=== PATIENT | male | born 1975 | race Two or more races ===

== ENCOUNTER 2019-01-11 10:31 | Day surgery (SDC) | payer BC ==
[~2019-01-11] VITALS: Ht 185.4 cm; Wt 76.9 kg
[~2019-01-11 10:31] MED LIST: ESOMEPRAZOLE; LANSOPRAZOLE; RANITIDINE
[2019-01-11 11:10] VITALS: Ht 185.4 cm; Wt 76.9 kg
[2019-01-11 11:20] VITALS: BP 124/82; PULSE 74; RESP 14
[2019-01-11] MEDS ORDERED: PROPOFOL 20 ML ONE (11:24)
[2019-01-11 11:30] VITALS: BP 124/82; PULSE 74; RESP 14
[2019-01-11] MEDS ORDERED: FENTAnyl 50 MCG/ML VIAL ONE (11:49)
[2019-01-11] MEDS ORDERED: MIDAZOLAM 1 MG/ML 2 ML INJ ONE (11:49)
== END 2019-01-11 13:36 | disposition home or self-care (01) ==
LOC: GIL 10:31
PROVIDERS: ATTEND Internal Medicine Gastroenterology
DX: K20.8 Other esophagitis (principal)
CPT/HCPCS: 88305; 88312; 88313; J2250; J3010